=== PATIENT | male | born 1965 | race Caucasian/White ===

== ENCOUNTER 2016-08-25 16:21 | Emergency (ER) | payer OTHER ==
[~2016-08-25] VITALS: Ht 177.8 cm; Wt 106.0 kg
[2016-08-25 16:27] VITALS: Ht 177.8 cm; Wt 106.0 kg
[2016-08-25] MEDS ORDERED: LISI40TA PO (16:46)
[2016-08-25] MEDS ORDERED: FLUO10CA23 PO (16:46)
[2016-08-25] MEDS ORDERED: DSY100 PO (16:46)
[2016-08-25] MEDS ORDERED: TYLOTC500 PO (16:46)
[2016-08-25] MEDS ORDERED: ATOR-22 PO (16:46)
[2016-08-25] MEDS ORDERED: PRED20TA PO (16:46)
[2016-08-25] MEDS ORDERED: GLC500 PO (16:46)
--- NOTE | 2016-08-25 16:57 | EMERGENCY ROOM VISIT NOTE ---
History Report prepared by Vazquez: Talon Zhang Under the Supervision of: Dr. Omari Magdaleno D.O. First contact with patient: 16:44 Chief Complaint: ILLNESS Stated Complaint: LUQ ABD PAIN,WEAKNESS,FEVER,GAS BUILDUP,SHIVERING History of Present Illness The patient is a 51 year old male who presents to the Emergency Room with complaints of weakness that began 3 days ago. The patient rates his pain a 3/10 in severity. He was seen in [place] at this time. He began to have severe headaches and neck pain. He was given Prednisone and discharged. His symptoms have worsened where he has a fever, abdominal pain that feeling like pulling, a build up of gas, back pain, and chills. He received CT scans that did not show anything abnormal. He also saw his PCP who does not know how to treat as well. He has plans to see a wire wheeler. He denies any diarrhea, vomiting, chest pain, shortness of breath, rash, and leg edema/pain. He has a past medical history of Type 2 Diabetes. He states that this has been under control. Onset: 3 days ago Position: other (global) Symptom Intensity: 3/10 Quality: pressure Timing: worsening Associated Symptoms: + abdominal pain, + back pain, + chills, + fevers, + headache, + neck pain, No SOB, No chest pain, No diarrhea, No vomiting Review of Systems See HPI for pertinent positives & negatives. A total of 10 systems reviewed and were otherwise negative. Past Medical & Surgical Medical Problems: (1) Diabetes mellitus Family History Omitted secondary to age. Social History Smoking Status: Never Smoker Smokeless Tobacco Use: No Drug Use: none Housing Status: lives with family Occupation Status: employed Current/Historical Medications Scheduled Acetaminophen (Tylenol), 500 MG PO UD Atorvastatin (Lipitor), 20 MG PO HS Fluoxetine Hcl (Fluoxetine Hcl), 10 MG PO QAM Lisinopril (Zestril), 40 MG PO QAM Metformin HCl (Metformin HCl), 500 MG PO BID Prednisone (Prednisone), 20 MG PO UD Trazodone HCl (Trazodone HCl), 100 MG PO HS Allergies Coded Allergies: No Known Allergies (Unverified , 08/25/16) Physical Exam Vital Signs Date Time Temp Pulse Resp B/P Pulse Ox O2 Delivery O2 Flow Rate FiO2 08/25/16 21:53 85 18 125/74 08/25/16 21:53 36.7 82 20 129/84 96 08/25/16 19:44 82 129/84 08/25/16 16:27 36.7 104 20 128/78 96 Room Air Physical Exam GENERAL: Patient is awake, alert, and in no acute distress. Patient is resting comfortably and showing no signs of anxiety EYES: The conjunctivae are clear. The pupils are round and reactive. EARS, NOSE, MOUTH AND THROAT: The nose is without any evidence of any deformity. Mucous membranes are moist tongue is midline NECK: The neck is nontender and supple. RESPIRATORY: Normal respiratory effort is noted there is no evidence of wheezing rhonchi or rales CARDIOVASCULAR: Regular rate and rhythm noted there no murmurs rubs or gallops normal S1 normal S2 GASTROINTESTINAL: The abdomen is soft. Bowel sounds are present in all quadrants. Abdomen is nontender BACK: No midline tenderness or or step-off noted range of motion in flexion extension as well as rotation no signs of muscle spasm noted MUSCULOSKELETAL/EXTREMITIES: There is no evidence of gross deformity full range of motion is noted in the hips and shoulders SKIN: There is no obvious evidence of any rash. There are no petechiae, pallor or cyanosis noted. NEUROLOGIC: Patient is awake alert and oriented x3 strength is symmetric patellar reflexes are 2+ bilaterally Medical Decision & Procedures ER Provider Diagnostic Interpretation: Radiology results are stated below per my review and radiologist interpretation: PA CHEST RADIOGRAPH AND UPRIGHT AND SUPINE AP RADIOGRAPHS OF THE ABDOMEN CLINICAL HISTORY: Left upper quadrant pain and fever. COMPARISON STUDY: No previous studies for comparison. FINDINGS: Lung volumes are normal and the lungs are clear. There is no pneumothorax or pleural effusion. Cardiac size is normal. Mediastinal contours are normal. Elevation of the distal right clavicle suggests an old AC joint separation. Cardiomediastinal silhouette is normal. There is no free air. There is a moderate amount of stool within the colon. A 5 mm left pelvic calcification is noted. The bowel gas pattern is normal. IMPRESSION: 1. No free air or evidence of bowel obstruction. 2. Moderate amount of stool within the colon. 3. 5 mm left pelvic calcification. This could reflect a phlebolith or distal left ureteral calculus. 4. No acute cardiopulmonary findings. Electronically signed by: Christopher Coronel M.D. 08/25/2016 5:45 PM Dictated Date/Time: 08/25/2016 5:43 PM RENAL ULTRASOUND CLINICAL HISTORY: Left-sided pain. COMPARISON STUDY: Abdominal series performed earlier today. TECHNIQUE: Sonography of the kidneys and the urinary bladder was performed. FINDINGS: The right kidney measures 12.3 x 5.4 x 5.8 cm and the left measures 13.1 x 6.6 x 7.2 cm. There is no hydronephrosis. Renal echogenicity, size and cortical thickness are normal. The kidneys are slightly obscured by overlying bowel gas. Both ureteral jets were identified. No renal calculi were identified. IMPRESSION: Unremarkable renal ultrasound. No hydronephrosis. Electronically signed by: Christopher Coronel M.D. 08/25/2016 7:51 PM Dictated Date/Time: 08/25/2016 7:50 PM Laboratory Results 08/25/16 16:55 Red Blood Count 4.86, Mean Corpuscular Volume 82.9, Mean Corpuscular Hemoglobin 29.2, Mean Corpuscular Hemoglobin Concent 35.2, Mean Platelet Volume 9.5 08/25/16 16:55 Test 08/25/16 16:55 08/25/16 21:18 White Blood Count 9.27 K/uL (4.8-10.8) Red Blood Count 4.86 M/uL (4.7-6.1) Hemoglobin 14.2 g/dL (14.0-18.0) Hematocrit 40.3 % (42-52) Mean Corpuscular Volume 82.9 fL (80-100) Mean Corpuscular Hemoglobin 29.2 pg (25-34) Mean Corpuscular Hemoglobin Concent 35.2 g/dl (32-36) Platelet Count 153 K/uL (130-400) Mean Platelet Volume 9.5 fL (7.4-10.4) RDW Standard Deviation 41.6 fL (36.4-46.3) RDW Coefficient of Variation 13.7 % (11.5-14.5) Neutrophils % (Manual) 67.3 % Lymphocytes % (Manual) 11.5 % Variant Lymphocytes % (manual) 17.7 % Monocytes % (Manual) 3.5 % Neutrophils # (Manual) 6.24 K/uL (1.4-6.5) Total Absolute Neutrophils 6.24 K/uL (1.4-6.5) Lymphocytes # (Manual) 1.07 K/uL (1.2-3.4) Absolute Variant Lymphocytes 1.64 K/uL Total Absolute Lymphocytes 2.71 K/uL (1.2-3.4) Monocytes # (Manual) 0.32 K/uL (0.11-0.59) Red Blood Cell Morphology Unremarkable Prothrombin Time 11.4 SECONDS (9.0-12.0) Prothromb Time International Ratio 1.1 (0.9-1.1) Activated Partial Thromboplast Time 28.8 SECONDS (21.0-31.0) Partial Thromboplastin Ratio 1.1 Anion Gap 6.0 mmol/L (3-11) Est Creatinine Clear Calc Drug Dose 86.8 ml/min Estimated GFR () 79.5 Estimated GFR (Non- 68.6 BUN/Creatinine Ratio 21.6 (10-20) Calcium Level 8.9 mg/dl (8.5-10.1) Total Bilirubin 0.6 mg/dl (0.2-1) Direct Bilirubin 0.1 mg/dl (0-0.2) Aspartate Amino Transf (AST/SGOT) 19 U/L (15-37) Alanine Aminotransferase (ALT/SGPT) 59 U/L (12-78) Alkaline Phosphatase 59 U/L (45-117) Total Creatine Kinase 75 U/L (39-308) Creatine Kinase MB 0.7 ng/ml (0.5-3.6) Creatine Kinase MB Ratio 0.9 (0-3.0) Troponin I < 0.015 ng/ml (0-0.045) Total Protein 7.6 gm/dl (6.4-8.2) Albumin 3.6 gm/dl (3.4-5.0) Lipase 248 U/L (73-393) Lyme Disease IgG Antibody NEG (NEG) Lyme Disease IgM Antibody NEG (NEG) Urine Color YELLOW Urine Appearance CLEAR (CLEAR) Urine pH 6.5 (4.5-7.5) Urine Specific [place] 1.020 (1.000-1.030) Urine Protein NEG (NEG) Urine Glucose (UA) NEG (NEG) Urine Ketones NEG (NEG) Urine Occult Blood NEG (NEG) Urine Nitrite NEG (NEG) Urine Bilirubin NEG (NEG) Urine Urobilinogen NEG (NEG) Urine Leukocyte Esterase NEG (NEG) Laboratory results per my review. ECG Indication: abdominal pain Rate (beats per minute): 75 Rhythm: normal sinus Findings: no ectopy, other (No acute ST segment abnormalities) Comparison ECG Date: no prior available ED Course 1643: The patient was evaluated in room B4. A complete history and physical examination were performed. 2141: Upon reevaluation, the patient is resting. I discussed the results and treatment plan with him. He verbalized agreement of the treatment plan. He was discharged home. Medical Decision Differential diagnosis: Etiologies such as appendicitis, diverticulitis, PUD, biliary pathology, UTI, pancreatitis, obstruction, mesenteric ischemia, aortic pathology, infections, inflammatory bowel disease, renal colic, as well as others were entertained. Nursing notes reviewed. We attempted to get the patient's previous medical records from [place] however they're medical records Department closed the weekend. The patient is a 51-year-old male who presented to the emergency department for abdominal pain. The patient states he's had left upper quadrant abdominal pain which is been going on for quite some time. He's been seen by his primary care physician as well as his local emergency department. The patient's physical exam was not consistent with an acute surgical abdomen. His CBC did not reveal any acute abnormalities. I discussed the patient's laboratory and radiographic studies with him. He was encouraged to rest and avoid any strenuous ectopy. He has a follow-up appointment wire wheeler scheduled. He was encouraged to keep this appointment. He was also encouraged to continue all medications as prescribed and return to the emergency department immediately if symptoms change worsen or the need arises. Impression Primary Impression: LUQ abdominal pain Scribe Attestation The scribe's documentation has been prepared under my direction and personally reviewed by me in its entirety. I confirm that the note above accurately reflects all work, treatment, procedures, and medical decision making performed by me. Departure Information Dispostion Home / Self-Care Referrals Wayne Justice D.O. (PCP) Forms HOME CARE DOCUMENTATION FORM, IMPORTANT VISIT INFORMATION, WORK / SCHOOL INSTRUCTIONS Patient Instructions ED Abd Pain Unkn Cause Male, My [facility] Additional Instructions Continue all medications as prescribed. Call your family to schedule a follow-up appointment.
[2016-08-25 17:09] LABS: HEMATOCRIT 40.3 % (42-52); MEAN CELL VOLUME 82.9 fL (80-100); MEAN CORPUSCULAR HEMOGLOBIN 29.2 pg (25-34); MEAN CORPUSCULAR HGB CONC 35.2 g/dl (32-36); MEAN PLATELET VOLUME 9.5 fL (7.4-10.4); PLATELET COUNT 153 K/uL (130-400); RED BLOOD COUNT 4.86 M/uL (4.7-6.1); WHITE BLOOD COUNT 9.27 K/uL (4.8-10.8)
[2016-08-25 17:19] LABS: INR 1.1 (0.9-1.1); PARTIAL THROMBOPLASTIN RATIO 1.1; PROTHROMBIN TIME (PATIENT) 11.4 SECONDS (9.0-12.0)
[2016-08-25 17:32] LABS: ALT/SGPT 59 U/L (12-78); AST/SGOT 19 U/L (15-37); BLOOD UREA NITROGEN 26 mg/dl (7-18); BUN/CREATININE RATIO 21.6 (10-20); CALCIUM 8.9 mg/dl (8.5-10.1); CARBON DIOXIDE 27 mmol/L (21-32); CHLORIDE 106 mmol/L (98-107); GLUCOSE 166 mg/dl (70-99); POTASSIUM 4.4 mmol/L (3.5-5.1); SODIUM 139 mmol/L (136-145)
[2016-08-25 17:37] LABS: ALKALINE PHOSPHATASE 59 U/L (45-117); CKMB/CK RATIO 0.9 (0-3.0)
--- NOTE | 2016-08-25 17:47 | DIAGNOSTIC IMAGING REPORT ---
PA CHEST RADIOGRAPH AND UPRIGHT AND SUPINE AP RADIOGRAPHS OF THE ABDOMEN CLINICAL HISTORY: Left upper quadrant pain and fever. COMPARISON STUDY: No previous studies for comparison. FINDINGS: Lung volumes are normal and the lungs are clear. There is no pneumothorax or pleural effusion. Cardiac size is normal. Mediastinal contours are normal. Elevation of the distal right clavicle suggests an old AC joint separation. Cardiomediastinal silhouette is normal. There is no free air. There is a moderate amount of stool within the colon. A 5 mm left pelvic calcification is noted. The bowel gas pattern is normal. IMPRESSION: 1. No free air or evidence of bowel obstruction. 2. Moderate amount of stool within the colon. 3. 5 mm left pelvic calcification. This could reflect a phlebolith or distal left ureteral calculus. 4. No acute cardiopulmonary findings. Electronically signed by: Christopher Coronel M.D. 08/25/2016 5:45 PM Dictated Date/Time: 08/25/2016 5:43 PM
[2016-08-25 17:50] LABS: COMPLETE YES; LYMPH ABS # 1.07 K/uL (1.2-3.4); LYMPHOCYTE % 11.5 %; NEUTROPHILS % 67.3 %; VARIANT LYM ABS # 1.64 K/uL; VARIANT LYMPHOCYTE % 17.7 %
[2016-08-25 18:11] LABS: LYME DISEASE AB IGG NEG (NEG); LYME DISEASE AB IGM NEG (NEG)
--- NOTE | 2016-08-25 19:53 | DIAGNOSTIC IMAGING REPORT ---
RENAL ULTRASOUND CLINICAL HISTORY: Left-sided pain. COMPARISON STUDY: Abdominal series performed earlier today. TECHNIQUE: Sonography of the kidneys and the urinary bladder was performed. FINDINGS: The right kidney measures 12.3 x 5.4 x 5.8 cm and the left measures 13.1 x 6.6 x 7.2 cm. There is no hydronephrosis. Renal echogenicity, size and cortical thickness are normal. The kidneys are slightly obscured by overlying bowel gas. Both ureteral jets were identified. No renal calculi were identified. IMPRESSION: Unremarkable renal ultrasound. No hydronephrosis. Electronically signed by: Christopher Coronel M.D. 08/25/2016 7:51 PM Dictated Date/Time: 08/25/2016 7:50 PM
[2016-08-25 21:27] LABS: URINE APPEARANCE CLEAR (CLEAR); URINE BILIRUBIN NEG (NEG); URINE COLOR YELLOW; URINE NITRITE NEG (NEG); URINE PH 6.5 (4.5-7.5); UROBILINOGEN NEG (NEG)
[2016-08-25 21:28] LABS: MANUAL MICROSCOPIC REQUIRED? NO; REVIEW REQ? NO
[2016-08-25 21:53] VITALS: BP 125/74; PULSE 85; TEMP 36.7; O2SAT 96
== END 2016-08-25 21:55 | disposition home or self-care (01) ==
LOC: C.EDB 16:26
DX: E11.9 Type 2 diabetes mellitus without complications (principal); R10.12 Left upper quadrant pain; M61.452 Other calcification of muscle, left thigh; K59.00 Constipation, unspecified